=== PATIENT | female | born 1980 | race Two or more races ===

== ENCOUNTER 2025-04-01 12:17 | Emergency (ER) | payer BC, SELFPAY ==
[2025-04-01] VITALS (7 sets, daily range): BP systolic 111–134; BP diastolic 62–75; PULSE 60–72; RESP 17–18; TEMP 37–37.2; O2SAT 99–100; BMI 31.2
--- NOTE | 2025-04-01 13:49 | XR_ITS ---
Examination: Pelvic ultrasound, transabdominal, complete Technique: Transabdominal ultrasound of the pelvis performed using grayscale imaging Date and time of exam: April 01, 2025 1359 hours INDICATIONS: Anemia on laboratory examination today FINDINGS: Uterus 9.0 cm Anterior uterine body mass 2.8 x 2.1 x 2.9 cm Posterior uterine body mass 4.1 x 3.3 x 4.2 cm Endometrial stripe 0.6 cm Right ovary 2.7 cm arterial flow Left ovary 2.4 cm arterial flow IMPRESSION: Uterine areas of probable fibroid degeneration, recommend 6 month follow-up transvaginal pelvic sonography
--- NOTE | 2025-04-01 13:50 | PD.EDRME ---
Rapid Medical Screening Exam RME Arrival date/time: 04/01/25 12:17 Chief Complaint: General Adult/Misc Complain Vital signs: Vital Signs Temperature 99.0 F 04/01/25 13:32 Pulse Rate 72 04/01/25 13:32 Respiratory Rate 18 04/01/25 13:32 Blood Pressure 125/73 04/01/25 13:32 Pulse Oximetry (%) 100 04/01/25 13:32 Oxygen Delivery Method Room Air 04/01/25 13:32 RME Narrative: Patient is a 44-year-old female with medical history notable for heavy vaginal bleeding that is in the emergency department sent in by her primary care doctor for possible blood transfusion. Denies fevers chills nausea vomiting chest pain palpitations. Patient does have abdominal discomfort. Has never needed a blood transfusion in the past. Patient is willing to get a transfusion today if needed. Denies any hemoptysis, hematemesis, melena, hematochezia
[2025-04-01 14:03] LABS: Collection Type, Urine Clean Catch
[2025-04-01 14:17] LABS: Bacteria,Urine 3+; Bilirubin,Urine Negative (Negative); Blood,Urine Negative (Negative); Clarity,Urine Clear (Clear/Hazy); Color,Urine Colorless (Lt Yel-Yel); Glucose, Urine Negative (Negative); Ketones,Urine Negative (Negative); Leukocyte Esterase,Urine Negative (Negative); Nitrite,Urine Negative (Negative); PH,Urine 7.5 (5.0-7.0); Protein,Urine Negative (Neg - Trace); RBC,Urine 1 /hpf (0-3); Specific Gravity,Urine 1.008 (1.001-1.035); Squamous Epithelial Cell,Urine 2 /hpf (0-5); Urobilinogen,Urine Negative mg/dL (0.0-1.0); WBC,Urine 2 /hpf (0-5)
[2025-04-01 14:20] LABS: Culture Indicated,Urine Yes
[2025-04-01 14:29] LABS: Basophils # (Auto) 0.1 Thou/mm3 (0.0-0.2); Basophils % (Auto) 1 % (0-2.5); Eosinophils # (Auto) 0.1 Thou/mm3 (0.0-0.5); Eosinophils % (Auto) 2 % (0-10); Hematocrit 24.7 % (36.0-46.0); Immature Granulocytes Auto 0.01 Thou/mm3 (0.00-0.00); Lymphocytes # (Auto) 2.4 Thou/mm3 (1.0-4.8); Lymphocytes % (Auto) 41 % (10-50); Mean Corpuscular HGB Conc 26.3 g/dl (31.0-37.0); Mean Corpuscular Hemoglobin 16.5 pg (25.0-35.0); Mean Corpuscular Volume 63 fL (80-100); Monocytes # (Auto) 0.4 Thou/mm3 (0.0-0.8); Monocytes % (Auto) 8 % (0-12); Neutrophils # (Auto) 2.8 Thou/mm3 (1.8-7.7); Neutrophils % (Auto) 47 % (37-80); Nucleated Red Blood Cell # 0.00 Thou/mm3 (0.00-0.00); Nucleated Red Blood Cell % 0 /100 WBC (0); Platelet Count 227 Thou/mm3 (140-440); RDW Standard Deviation 40.9 fL (36.4-46.3); Red Blood Count 3.95 Miln/mm3 (4.00-5.20); White Blood Count 5.8 Thou/mm3 (3.6-11.0)
[2025-04-01 14:40] LABS: INR 1.0 (0.9-1.3); Prothrombin Time 10.9 Seconds (9.0-12.2)
[2025-04-01 14:45] LABS: Hemoglobin 6.5 g/dL (12.0-16.0)
[2025-04-01 14:47] LABS: Alanine Aminotransferase 14 U/L (10-49); Albumin, Serum 4.7 gm/dL (3.5-5.0); Albumin/Globulin Ratio 1.6 (1.2-2.2); Alkaline Phosphatase 82 U/L (46-116); Anion Gap 10 (7-16); Aspartate Amino Transferase 20 U/L (0-34); BUN/Creatinine Ratio 9 Ratio (12-20); Bilirubin,Total 1.5 mg/dL (0.3-1.2); Blood Urea Nitrogen 6 mg/dL (9-23); Calcium 9.6 mg/dL (8.3-10.6); Calcium (Corrected) 9.6 mg/dL (8.5-10.1); Carbon Dioxide 21.6 mMol/L (20.0-31.0); Chloride 108 mMol/L (98-107); Creatinine (Component) 0.7 mg/dL (0.6-1.3); Estimated Creatinine Clearance 89.3 mL/min (>60); Globulin 2.9 gm/dL (2.3-3.5); Glucose 93 mg/dL (74-106); Osmolality,Calculated 277 (275-295); Potassium 3.9 mMol/L (3.4-5.1); Sodium 140 mMol/L (136-145); Total Protein 7.6 gm/dL (5.7-8.2); eGFR > 60 See Note
[2025-04-01 15:23] LABS: HCG,Qualitative Serum Negative
--- NOTE | 2025-04-01 18:32 | EDNOTE_ITS ---
ED OB Contraction Preg RMI/HPI General Chief complaint: General Adult/Misc Complain Stated complaint: LOW HGB DONE HERE THIS AM, NEEDS BLOOD Time Seen by Provider: 04/01/25 18:30 Arrival date/time: 04/01/25 12:17 RME / HPI RME / HPI Narrative: Patient is a 44-year-old female with medical history notable for heavy vaginal bleeding that is in the emergency department sent in by her primary care doctor for possible blood transfusion. Denies fevers chills nausea vomiting chest pain palpitations. Patient does have abdominal discomfort. Has never needed a blood transfusion in the past. Patient is willing to get a transfusion today if needed. Denies any hemoptysis, hematemesis, melena, hematochezia DR. EDEN MAIN ED EVALUATION: 44 y/o female with Hx of heavy vaginal bleeding presents to ED c/o heavy vaginal bleeding with her menstrual x 6 days. PCP sent patient in due to recent blood tests showing she may need a blood transfusion. She reports feeling weak and fatigued for over 1 month. Patient also reports occasional lower abdominal pain. Denies vomiting and melanotic stool. Patient has been in ED for 6 hours prior to my initial assessment. No other concerns or complaints expressed at this time. Related Data Previous Rx's ?Medication ?Instructions ?Recorded ferrous sulfate 325 mg (65 mg 325 mg PO TID #90 tabs 0 04/01/25 iron) tablet (FeroSul) Allergies Allergy/AdvReac Type Severity Reaction Status Date / Time No Known Allergies Allergy Verified 04/01/25 12:20 Review of Systems Review of Systems Systems Reviewed: All systems reviewed, normal except as documented Past Medical History Social History SMOKING STATUS: Never smoker ED Exam Narrative Physical exam: Generally the patient is alert oriented no obvious distress, heart regular rate and rhythm, lungs clear to auscultation equal bilaterally, abdomen soft bowel sounds present nondistended nontender, skin is warm pale and dry, neurologic exam no focal motor or sensory deficits. No ataxia. Course Quality Measures none Orders Category Date Time Status Transfuse,blood/blood products NOW Care 04/01/25 17:20 Active US pelvic complete Stat Exams 04/01/25 13:49 Completed CBC Stat Lab 04/01/25 14:14 Completed CMP [Comprehensive Metabolic Panel] Stat Lab 04/01/25 14:14 Completed HCG,Qualitative Serum Stat Lab 04/01/25 14:14 Completed PT [Prothrombin Time with INR] Stat Lab 04/01/25 14:14 Completed Red Blood Cells Stat Lab 04/01/25 14:14 Results Type and Screen Stat Lab 04/01/25 14:14 Results UA, C/S IF [Urinalysis, C/S if Indicated] Stat Lab 04/01/25 13:58 Completed Urine Culture Stat Lab 04/01/25 13:58 Received Vital Signs Vital signs: Vital Signs Temperature 99.0 F 04/01/25 13:32 Pulse Rate 72 04/01/25 13:32 Respiratory Rate 18 04/01/25 13:32 Blood Pressure 125/73 04/01/25 13:32 Pulse Oximetry (%) 100 04/01/25 13:32 Oxygen Delivery Method Room Air 04/01/25 13:32 Vaginal Bleeding MDM Narrative MDM Narrative: Scribe Attestation: I, Katherin Arriola, am scribing for and in the presence of Dr. Eden. Provider Notation: Although this document has been carefully reviewed, there may still be some phonetic and other typographical errors.? These errors are purely grammatical due to imperfections in the software program and should not be construed in any way to?compromise the substance of the patient's medical care during this visit. Patient has been here for 6 hours prior to my evaluation. Vital signs are stable. She is anemic with a hemoglobin of 6.5. Blood has already been ordered for transfusion. Patient will be transfused. She will be started on iron. I reviewed and interpreted all labs and reviewed the ultrasound report of the pelvis essentially showing 2 separate what appears to be fibroid tumors. Patient was counseled on the need to obtain an S[facility]IOR [facility]EL SPECIALIST physician. After the transfusion she will be discharged on iron to be taken as prescribed. Return to ER as needed or if condition worsens. Patient data External records reviewed:: [facility] previous records (No prior ED records available for review.) Clinical information provided by:: patient Social determinants that could affect healthcare access:: none Patient has the following chronic illnesses:: None reported How is presenting disease/condition affected by chronic disease/condition?: no chronic disease Evaluation data The following diagnostics were reviewed and interpreted by me:: lab results and radiology exam(s) Lab and/or radiology exams considered but not ordered:: None Interpretation Summary: RADIOLOGY Pelvic US: FINDINGS: Uterus 9.0 cm Anterior uterine body mass 2.8 x 2.1 x 2.9 cm Posterior uterine body mass 4.1 x 3.3 x 4.2 cm Endometrial stripe 0.6 cm Right ovary 2.7 cm arterial flow Left ovary 2.4 cm arterial flow IMPRESSION: Uterine areas of probable fibroid degeneration, recommend 6 month follow-up transvaginal pelvic sonography Medications / Prescriptions Medications or Prescriptions considered but not ordered:: None Medication administrations:: See above if any. Consultations Consultation(s) initiated? (list below): No Diagnosis Vaginal Bleeding Differential Diagnosis: dysfunctional uterine bleeding, menometrorrhagia, ectopic without intrauterine and vaginal bleeding Most likely diagnosis given after review of the tests above:: Vaginal bleeding, Microcytic anemia Admission Indicated Admission indicated?: not indicated Explain why admission is indicated or not indicated:: Patient does not meet admission criteria. Admission Request Was there a request for admission?: No Disposition Plan Disposition Plan: Discharge Discharge Attestation Discharge Attestation: The patient and all family members were given an opportunity to ask questions and understood the discharge instructions. Discharge instructions specifically effects, indications for sooner follow up or return to the emergency department, and the expected course of current diagnosis. Patient condition: Stable Discharge Plan Plan Patient Disposition: HOME (Self Care) Prescriptions/Referrals Prescriptions/Med Rec: New ferrous sulfate [FeroSul] 325 mg (65 mg iron) tablet 325 mg PO TID Qty: 90 0RF Referrals: Samuel Florez MD [Primary Care Provider] - In 1 week Problem List Clinical Impression: Vaginal bleeding, Microcytic anemia Patient/Caregiver Discharge Instructions Education Materials: Anemia, Understanding Uterine Bleeding Additional Instructions: Patient is stable for discharge after blood transfusion. Take iron as prescribed. Obtain an S[facility]IOR [facility]EL SPECIALIST physician to follow-up with. You may also follow- up with your primary care physician. Return to ER as needed or if condition worsens. Print Language: Latvian Stand Alone Forms: [employer] Patient Portal Info Letter
[2025-04-01 21:15] LABS: Path Review Blood Smear Sent to Pathologist
[2025-04-02 00:05] VITALS: BP 111/62; PULSE 61; RESP 17; TEMP 37.1; O2SAT 99
== END 2025-04-02 00:07 | disposition home or self-care (01) ==
PROVIDERS: Emergency Medicine; Emergency Provider Emergency Medicine; PCP Family Medicine
DX: N93.9 Abnormal uterine and vaginal bleeding, unspecified (principal); D50.9 Iron deficiency anemia, unspecified
CPT/HCPCS: 36415; 36430; 76856; 80053; 81001; 84703; 85025; 85610; 86850; 86900; 86901; 86923; 87086; 99283; P9016

== ENCOUNTER → 2025-04-01 | Outpatient (CLI) | payer BC, SELFPAY ==
[2025-04-01 10:32] LABS: Basophils # (Auto) 0.1 Thou/mm3 (0.0-0.2); Basophils % (Auto) 2 % (0-2.5); Eosinophils # (Auto) 0.1 Thou/mm3 (0.0-0.5); Eosinophils % (Auto) 3 % (0-10); Hematocrit 22.9 % (36.0-46.0); Immature Granulocytes Auto 0.01 Thou/mm3 (0.00-0.00); Lymphocytes # (Auto) 2.3 Thou/mm3 (1.0-4.8); Lymphocytes % (Auto) 41 % (10-50); Mean Corpuscular HGB Conc 27.1 g/dl (31.0-37.0); Mean Corpuscular Hemoglobin 16.9 pg (25.0-35.0); Mean Corpuscular Volume 63 fL (80-100); Monocytes # (Auto) 0.3 Thou/mm3 (0.0-0.8); Monocytes % (Auto) 5 % (0-12); Neutrophils # (Auto) 2.9 Thou/mm3 (1.8-7.7); Neutrophils % (Auto) 50 % (37-80); Nucleated Red Blood Cell # 0.00 Thou/mm3 (0.00-0.00); Nucleated Red Blood Cell % 0 /100 WBC (0); Platelet Count 234 Thou/mm3 (140-440); RDW Standard Deviation 41.0 fL (36.4-46.3); Red Blood Count 3.66 Miln/mm3 (4.00-5.20); White Blood Count 5.7 Thou/mm3 (3.6-11.0)
[2025-04-01 10:47] LABS: Hemoglobin 6.2 g/dL (12.0-16.0)
[2025-04-01 11:14] LABS: Alanine Aminotransferase 16 U/L (10-49); Albumin, Serum 4.4 gm/dL (3.5-5.0); Albumin/Globulin Ratio 1.6 (1.2-2.2); Alkaline Phosphatase 77 U/L (46-116); Anion Gap 11 (7-16); Aspartate Amino Transferase 21 U/L (0-34); BUN/Creatinine Ratio 13 Ratio (12-20); Bilirubin,Total 1.3 mg/dL (0.3-1.2); Blood Urea Nitrogen 9 mg/dL (9-23); Calcium 9.2 mg/dL (8.3-10.6); Calcium (Corrected) 9.2 mg/dL (8.5-10.1); Carbon Dioxide 22.3 mMol/L (20.0-31.0); Chloride 107 mMol/L (98-107); Creatinine (Component) 0.7 mg/dL (0.6-1.3); Free T4 (Free Thyroxine) 1.02 ng/dL (0.89-1.76); Globulin 2.7 gm/dL (2.3-3.5); Glucose 90 mg/dL (74-106); Osmolality,Calculated 278 (275-295); Potassium 4.0 mMol/L (3.4-5.1); Sodium 140 mMol/L (136-145); Thyroid Stimulating Hormone 2.89 uIU/mL (0.55-4.78); Total Protein 7.1 gm/dL (5.7-8.2); eGFR > 60 See Note
[2025-04-01 11:47] LABS: Cardiac Risk Estimate 3.4 RATIO (3.7-5.6); Cholesterol 114 mg/dL (132-200); HDL Cholesterol 34 mg/dL (40-60); LDL Cholesterol,Calculated 65 mg/dL (0-130); Triglycerides 75 mg/dL (30-150)
== END | disposition home or self-care (01) ==
LOC: COPL 09:07
PROVIDERS: PCP Family Medicine; Referring Provider Family Medicine; Visit Provider Family Medicine
DX: Z13.1 Encounter for screening for diabetes mellitus (principal); E78.1 Pure hyperglyceridemia; E03.2 Hypothyroidism due to medicaments and other exogenous substances; D50.0 Iron deficiency anemia secondary to blood loss (chronic)
CPT/HCPCS: 36415; 80053; 80061; 84439; 84443; 85025

== ENCOUNTER → 2025-05-09 | Outpatient (CLI) | payer BC, SELFPAY ==
[2025-05-09 10:23] LABS: Basophils # (Auto) 0.1 Thou/mm3 (0.0-0.2); Basophils % (Auto) 1 % (0-2.5); Eosinophils # (Auto) 0.2 Thou/mm3 (0.0-0.5); Eosinophils % (Auto) 4 % (0-10); Hematocrit 34.1 % (36.0-46.0); Hemoglobin 10.8 g/dL (12.0-16.0); Immature Granulocytes Auto 0.02 Thou/mm3 (0.00-0.00); Lymphocytes # (Auto) 2.1 Thou/mm3 (1.0-4.8); Lymphocytes % (Auto) 37 % (10-50); Mean Corpuscular HGB Conc 31.7 g/dl (31.0-37.0); Mean Corpuscular Hemoglobin 25.1 pg (25.0-35.0); Mean Corpuscular Volume 79 fL (80-100); Monocytes # (Auto) 0.3 Thou/mm3 (0.0-0.8); Monocytes % (Auto) 5 % (0-12); Neutrophils # (Auto) 3.0 Thou/mm3 (1.8-7.7); Neutrophils % (Auto) 53 % (37-80); Nucleated Red Blood Cell # 0.00 Thou/mm3 (0.00-0.00); Nucleated Red Blood Cell % 0 /100 WBC (0); Platelet Count 204 Thou/mm3 (140-440); Red Blood Count 4.30 Miln/mm3 (4.00-5.20); White Blood Count 5.7 Thou/mm3 (3.6-11.0)
[2025-05-09 10:48] LABS: Iron 35 mcg/dL (50-170)
== END | disposition home or self-care (01) ==
LOC: COPL 09:36
PROVIDERS: PCP Family Medicine; Referring Provider Family Medicine; Visit Provider Family Medicine
DX: D50.0 Iron deficiency anemia secondary to blood loss (chronic) (principal)
CPT/HCPCS: 36415; 83540; 85025

== ENCOUNTER → 2025-08-09 | Outpatient (CLI) | payer BC, SELFPAY ==
[2025-08-09 11:26] LABS: Basophils # (Auto) 0.1 Thou/mm3 (0.0-0.2); Basophils % (Auto) 1 % (0-2.5); Eosinophils # (Auto) 0.2 Thou/mm3 (0.0-0.5); Eosinophils % (Auto) 3 % (0-10); Hematocrit 37.3 % (36.0-46.0); Hemoglobin 12.3 g/dL (12.0-16.0); Immature Granulocytes Auto 0.01 Thou/mm3 (0.00-0.00); Lymphocytes # (Auto) 2.4 Thou/mm3 (1.0-4.8); Lymphocytes % (Auto) 34 % (10-50); Mean Corpuscular HGB Conc 33.0 g/dl (31.0-37.0); Mean Corpuscular Hemoglobin 28.9 pg (25.0-35.0); Mean Corpuscular Volume 88 fL (80-100); Monocytes # (Auto) 0.5 Thou/mm3 (0.0-0.8); Monocytes % (Auto) 7 % (0-12); Neutrophils # (Auto) 3.9 Thou/mm3 (1.8-7.7); Neutrophils % (Auto) 55 % (37-80); Nucleated Red Blood Cell # 0.00 Thou/mm3 (0.00-0.00); Nucleated Red Blood Cell % 0 /100 WBC (0); Platelet Count 251 Thou/mm3 (140-440); RDW Standard Deviation 42.5 fL (36.4-46.3); Red Blood Count 4.25 Miln/mm3 (4.00-5.20); White Blood Count 7.1 Thou/mm3 (3.6-11.0)
== END | disposition home or self-care (01) ==
LOC: COPL 10:46
PROVIDERS: PCP Family Medicine; Referring Provider Family Medicine; Visit Provider Family Medicine
DX: D50.0 Iron deficiency anemia secondary to blood loss (chronic) (principal)
CPT/HCPCS: 36415; 85025